=== PATIENT | male | born 1950 | race Caucasian/White ===

== ENCOUNTER 2017-08-23 19:20 | Emergency (ER) | payer MEDICARE, OTHER ==
[2017-08-23] MEDS: HYDROCODONE/APAP 7.5/325MG TABLET PO ONE (19:43)
--- NOTE | 2017-08-23 19:44 | Emergency Department Record ---
History of Present Illness - General Chief complaint: Pain Stated complaint: LT SHOULDER PAIN Time Seen by Provider: 08/23/17 19:37 Source: Patient Mode of Arrival: Ambulatory Limitations: No limitations - History of Present Illness Initial comments: 67 yo male presents to ED for evaluation of worsening left shoulder pain. Patient reports undergoing left shoulder surgery approximately 50 years ago for frequent dislocations, reports that his shoulder has done well over that time until the last several months. Patient reports increased pain with rolling onto the shoulder in bed, reports the sensation that the shoulder "slides out of place, but then reduces". Patient reports that today he coughed resulting in sever pain to the shoulder, felt again that it may have minimally dislocated. Patient denies fevers, chills, or recent illness. MD Complaint: Joint pain Onset/Timin -: Hour(s) Location: Left, Shoulder History of Same: No Radiation: None Severity scale (1-10): 8 Quality: Aching Consistency: Constant, Getting worse Improves with: Nothing Worsens with: Palpation - Related Data Home Medications Medication Instructions Recorded Confirmed Last Taken Aspirin 81 mg PO DAILY 08/23/17 08/23/17 Unknown Glyburide [Diabeta] 5 mg PO BID 08/23/17 08/23/17 Unknown Lisinopril 20 mg PO DAILY 08/23/17 08/23/17 Unknown Metformin HCl [Glucophage] 1,000 mg PO BID 08/23/17 08/23/17 Unknown Metoprolol Succinate [Toprol Xl] 25 mg PO DAILY 08/23/17 08/23/17 Unknown Previous Rx's Medication Instructions Recorded Hydrocodone/Acetaminophen [Sumner 1 each PO Q6H PRN #15 tablet 08/23/17 7.5-325 Tablet] Allergies Allergy/AdvReac Type Severity Reaction Status Date / Time Penicillins Allergy PT UNSURE Verified 08/23/17 19:28 OF REACTION Travel Screening - Travel/Exposure Within Last 30 Days Have you traveled within the last 30 days?: No Review of Systems Constitutional: Denies: Chills, Fever, Malaise, Night sweats Eyes: Denies: Eye discharge, Eye pain ENT: Denies: Congestion, Ear pain, Epistaxis Respiratory: Denies: Cough, Dyspnea Cardiovascular: Denies: Chest pain, Dyspnea on exertion Endocrine: Denies: Fatigue, Heat or cold intolerance Gastrointestinal: Denies: Abdominal pain, Nausea, Vomiting Genitourinary: Denies: Incontinence, Retention Musculoskeletal: Reports: Arthralgia. Denies: Back pain, Gout, Joint swelling Skin: Denies: Bruising, Change in color Neurological: Denies: Abnormal gait, Confusion, Headache, Seizure Psychiatric: Denies: Anxiety Hematological/Lymphatic: Denies: Anemia, Blood Clots Past Medical History - SOCIAL HISTORY Smoking Status: Never smoker Alcohol Use: None Drug Use: None - RESPIRATORY Hx Respiratory Disorders: No - CARDIOVASCULAR Hx Cardio Disorders: Yes Hx Hypertension: Yes - NEURO Hx Neuro Disorders: No - GI Hx GI Disorders: No - Hx Genitourinary Disorders: No - ENDOCRINE Hx Endocrine Disorders: Yes Hx Diabetes: Yes (DM2) - MUSCULOSKELETAL Hx Musculoskeletal Disorders: No - PSYCH Hx Psych Problems: No - HEMATOLOGY/ONCOLOGY Hx Hematology/Oncology Disorders: No Family Medical History Any Significant Family History?: Yes Hx Diabetes: Father, Mother Physical Exam - General General Appearance: Alert, Oriented x3, Cooperative, Moderate distress Limitations: No limitations - Head Head exam: Atraumatic, Normocephalic, Normal inspection Head exam detail: negative: Abrasion, Contusion, Beasley's sign, General tenderness, Hematoma, Laceration - Eye Eye exam: Normal appearance. negative: Conjunctival injection, Periorbital swelling, Periorbital tenderness, Scleral icterus - ENT Ear exam: negative: Auricular hematoma, Auricular trauma Nasal Exam: negative: Dried blood, Foreign body Mouth exam: negative: Drooling, Laceration, Muffled voice, Tongue elevation - Neck Neck exam: Normal inspection. negative: Meningismus, Tenderness - Respiratory Respiratory exam: Normal lung sounds bilaterally. negative: Rales, Respiratory distress, Rhonchi, Stridor - Cardiovascular Cardiovascular Exam: Regular rate, Normal rhythm, Normal heart sounds Peripheral Pulses: 3+: Radial (L) - GI/Abdominal GI/Abdominal exam: Soft. negative: Rebound, Rigid, Tenderness - Rectal Rectal exam: Deferred - exam: Deferred - Extremities Extremities exam: Tenderness, Other (TTP along the deltouid muscle, pain when the LUE is not supported. No erythema or evidence for septic joint on examination, no pain along the posterior rotator cuff, no evidence for AC separation on examination. No pain below the mid-humerus. Strong distal radial pulse is present.). negative: Calf tenderness, Pedal edema - Back Back exam: Denies: CVA tenderness (R), CVA tenderness (L) - Neurological Neurological exam: Alert, Normal gait, Oriented X3 - Psychiatric Psychiatric exam: Normal affect, Normal mood - Skin Skin exam: Normal color. negative: Abrasion Type of lesion: negative: abrasion Course Vital Signs 08/23/17 19:30 Temperature 98.4 F Pulse Rate [ 76 Pulse Ox Probe] Respiratory 18 Rate Blood Pressure 148/78 [Left Arm] Pulse Ox 98 - Reevaluation(s) Reevaluation #1: 08/23/17 20:43 Left Shoulder: Advanced DJD, tigre bodies present, post-surgical changes. Patient was updated on his radiology results, reports that he has not seen an orthopedist in many years. Will place in sling for support, prescribe analgesia , and arrange follow-up with Dr. Saleem in the [facility]. Patient agrees with the plan as discussed. Disposition Disposition: Discharge Clinical Impression: Left shoulder strain Qualifiers: Encounter type: initial encounter Qualified Code(s): S46.912A - Strain of unspecified muscle, fascia and tendon at shoulder and upper arm level, left arm , initial encounter Disposition: Home, Self-Care Condition: (2) Stable Instructions: Osteoarthritis (ED) Additional Instructions: Return to ED if your symptoms worsen or if you have any concerns. Sumner as directed. Sling as directed. Follow-up with Dr. Saleem in the [facility] as directed in 1-3 days as directed. Prescriptions: Hydrocodone/Acetaminophen [Sumner 7.5-325 Tablet] 1 each PO Q6H PRN #15 tablet PRN Reason: Pain - Moderate (5-7) Forms: Patient Portal Access Time of Disposition: 20:46 Quality - Quality Measures Quality Measures: N/A - Blood Pressure Screening Does Patient Have Any of the Following: Active Dx of HTN Blood Pressure Classification: Pre-Hypertensive BP Reading Systolic Measurement: 123 Diastolic Measurement: 65 Screening for High Blood Pressure: Patient Exclusion, Hx of HTN [G9744]
== END 2017-08-23 21:05 | disposition home or self-care (01) ==
LOC: ER 19:20 → EDBD 19:20 → ER 21:05
DX: S46.912A Strain of unspecified muscle, fascia and tendon at shoulder and upper arm level, left arm, initial encounter (principal); X50.0XXA Overexertion from strenuous movement or load, initial encounter; Y92.009 Unspecified place in unspecified non-institutional (private) residence as the place of occurrence of the external cause
CPT/HCPCS: 99283

== ENCOUNTER 2018-08-13 20:45 | Emergency (ER) | payer MEDICARE, OTHER ==
[2018-08-13] MEDS ORDERED: HYDROMORPHONE HCL 2 MG/ML VIAL IVP ONE ×2 (21:24→21:43)
[2018-08-13] MEDS ORDERED: ONDANSETRON HCL IV 4 MG/2 ML VIAL IVP ONE (21:24)
[2018-08-13 21:50] LABS: BASO % 0.4 % (0-6); EOS % 0.8 % (0-6); GRAN % 78.5 % (47-80); HEMATOCRIT 42.3 % (42.0-52.0); LYMPH % 13.6 % (16-45); MEAN CELL VOLUME 82.6 fl (81-97); MEAN CORPUSCULAR HEMOGLOBIN 29.3 pg (27-33); MEAN CORPUSCULAR HGB CONC 35.5 g/dl (32-36); MEAN PLATELET VOLUME 10.4 fl (7.4-10.4); MONO % 6.7 % (0-9); PLATELET COUNT 211 K/uL (130-400); RED BLOOD COUNT 5.12 M/uL (4.40-5.70); RED CELL DISTRIBUTION WIDTH 13.1 % (11.5-14.5); WHITE BLOOD COUNT W/O DIFF 7.6 K/uL (4.2-12.2)
[2018-08-13 21:58] LABS: BLOOD UREA NITROGEN 15 mg/dL (8-23); CREATININE 0.9 mg/dL (0.7-1.2); EST GLOMERULAR FILTRATION RATE > 60 mL/min; TOTAL PROTEIN 7.4 g/dL (6.6-8.7)
[2018-08-13 22:00] LABS: GLUCOSE,RANDOM 225 mg/dL (74-109)
[2018-08-13 22:03] LABS: ALBUMIN 4.4 g/dL (4.0-5.0); ALKALINE PHOSPHATASE 49 U/L (40-129); ALT/SGPT 19 U/L (<41); AST/SGOT 18 U/L (10.0-50.0); BILIRUBIN,DIRECT < 0.2 mg/dL (0-0.3); LIPASE 36 U/L (13-60)
--- NOTE | 2018-08-13 22:13 | Emergency Department Record ---
History of Present Illness - General Chief Complaint: Abdominal Pain Stated Complaint: ABDOMINAL PAIN Time Seen by Provider: 08/13/18 21:21 Source: Patient Mode of Arrival: Ambulatory Limitations: No limitations - History of Present Illness Initial Comments: pt came in w a sudden onset of abd pain 2.5hrs ago. he vomited once. the pain is severe and constant. he has never had this before. hes had no abd surgeries MD Complaint: Abdominal pain Onset/Timin -: Hour(s) Location: Periumbilical, LLQ, RLQ Severity scale (1-10): 9 Quality: Sharp Consistency: Constant, Getting worse Associated Symptoms: Vomiting - Related Data Allergies Allergy/AdvReac Type Severity Reaction Status Date / Time Penicillins Allergy PT UNSURE Verified 08/23/17 19:28 OF REACTION Travel Screening - Travel/Exposure Within Last 30 Days Have you traveled within the last 30 days?: No - Travel Symptoms Symptom Screening: None Review of Systems Reviewed: No additional complaints except as noted below Constitutional: Reports: As per HPI. Denies: Chills, Fever, Malaise, Night sweats, Weakness, Weight change Eyes: Reports: As per HPI. Denies: Eye discharge, Eye pain, Photophobia, Vision change ENT: Reports: As per HPI. Denies: Congestion, Dental pain, Ear pain, Epistaxis , Hearing loss, Throat pain Respiratory: Reports: As per HPI. Denies: Cough, Dyspnea, Hemoptysis, Stridor, Wheezes Cardiovascular: Reports: As per HPI. Denies: Arrhythmia, Chest pain, Dyspnea on exertion, Edema, Murmurs, Orthopnea, Palpitations, Paroxysmal nocturnal dyspnea, Rheumatic Fever, Syncope Endocrine: Reports: As per HPI. Denies: Fatigue, Heat or cold intolerance, Polydipsia, Polyuria Gastrointestinal: Reports: As per HPI. Denies: Abdominal pain, Constipation, Diarrhea, Hematemesis, Hematochezia, Melena, Nausea, Vomiting Genitourinary: Reports: As per HPI. Denies: Dysuria, Frequency, Hematuria, Incontinence, Retention, Testicular pain, Testicular mass, Urgency Musculoskeletal: Reports: As per HPI. Denies: Arthralgia, Back pain, Gout, Joint swelling, Myalgia, Neck pain Skin: Reports: As per HPI. Denies: Bruising, Change in color, Change in hair/ nails, Lesions, Pruritus, Rash Neurological: Reports: As per HPI. Denies: Abnormal gait, Confusion, Headache, Numbness, Paresthesias, Seizure, Tingling, Tremors, Vertigo, Weakness Psychiatric: Reports: As per HPI. Denies: Anxiety, Auditory hallucinations, Depression, Homicidal thoughts, Suicidal thoughts, Visual hallucinations Hematological/Lymphatic: Reports: As per HPI. Denies: Anemia, Blood Clots, Easy bleeding, Easy bruising, Swollen glands Past Medical History - SOCIAL HISTORY Smoking Status: Never smoker - RESPIRATORY Hx Respiratory Disorders: Yes Hx Sleep Apnea: Yes Hx of CPAP: No - CARDIOVASCULAR Hx Cardio Disorders: Yes Hx Hypertension: Yes - NEURO Hx Neuro Disorders: No - GI Hx GI Disorders: Yes Hx Reflux: Yes - Hx Genitourinary Disorders: No - ENDOCRINE Hx Endocrine Disorders: Yes Hx Diabetes: Yes (DM2) - MUSCULOSKELETAL Hx Musculoskeletal Disorders: Yes Hx Arthritis: Yes - PSYCH Hx Psych Problems: No - HEMATOLOGY/ONCOLOGY Hx Hematology/Oncology Disorders: No Family Medical History Any Significant Family History?: Yes Hx Diabetes: Father, Mother Physical Exam - General General Appearance: Alert, Oriented x3, Cooperative, Moderate distress - Head Head exam: Normal inspection - Eye Eye exam: Normal appearance, PERRL, EOMI Pupils: Normal accommodation - ENT ENT exam: Normal exam, Mucous membranes moist, Normal external ear exam, Normal orophraynx Ear exam: Normal external inspection. negative: External canal tenderness Nasal Exam: Normal inspection. negative: Discharge, Sinus tenderness Mouth exam: Normal external inspection, Tongue normal Teeth exam: Normal inspection. negative: Dental caries Throat exam: Normal inspection. negative: Tonsillar erythema, Tonsillar exudate - Neck Neck exam: Normal inspection, Full ROM. negative: Tenderness - Respiratory Respiratory exam: Normal lung sounds bilaterally. negative: Respiratory distress - Cardiovascular Cardiovascular Exam: Regular rate, Normal rhythm, Normal heart sounds - GI/Abdominal GI/Abdominal exam: Soft, Normal bowel sounds, Hernia (umbilical, incarcerated, tender), Hypoactive bowel sounds, Tenderness - Rectal Rectal exam: Deferred - exam: Deferred - Extremities Extremities exam: Normal inspection, Full ROM, Normal capillary refill. negative: Tenderness - Back Back exam: Reports: Normal inspection, Full ROM. Denies: Muscle spasm, Rash noted, Tenderness - Neurological Neurological exam: Alert, CN II-XII intact, Normal gait, Oriented X3 - Psychiatric Psychiatric exam: Normal affect, Normal mood - Skin Skin exam: Dry, Intact, Normal color, Warm Course Vital Signs 08/13/18 08/13/18 08/13/18 20:55 21:05 21:50 Temperature 97.6 F Pulse Rate 66 Pulse Rate [ 72 Pulse Ox Probe] Respiratory 20 18 Rate Blood Pressure 216/104 Blood Pressure 208/95 166/86 [Left Arm] Pulse Ox 100 96 - Reevaluation(s) Reevaluation #1: 08/13/18 22:12 after dilaudid was given, hernia was reduced w slow constant pressure. pt feels much better Medical Decision Making - Lab Data Result diagrams: 08/13/18 21:12 08/13/18 21:12 Lab Results 08/13/18 08/13/18 08/13/18 Range/Units 21:12 21:12 21:12 WBC 7.6 (4.2-12.2) K/uL RBC 5.12 (4.40-5.70) M/uL Hgb 15.0 (14.0-18.0) gm/dl Hct 42.3 (42.0-52.0) % MCV 82.6 (81-97) fl MCH 29.3 (27-33) pg MCHC 35.5 (32-36) g/dl RDW 13.1 (11.5-14.5) % Plt Count 211 (130-400) K/uL MPV 10.4 (7.4-10.4) fl Gran % 78.5 (47-80) % Lymphocytes % 13.6 L (16-45) % Monocytes % 6.7 (0-9) % Eosinophils % 0.8 (0-6) % Basophils % 0.4 (0-6) % Sodium 141 (136-145) mmol/L Potassium 3.6 (3.4-4.5) mmol/L Chloride 97 L (98-107) mmol/L Carbon Dioxide 25.0 (22-29) mmol/L Anion Gap 19.0 H (7-16) BUN 15 (8-23) mg/dL Creatinine 0.9 (0.7-1.2) mg/dL Estimated GFR > 60 mL/min Random Glucose 225 H (74-109) mg/dL Lactic Acid 2.2 (0.5-2.2) mmol/L Calcium 10.1 (8.8-10.2) mg/dL Total Bilirubin 0.70 (0.2-1.0) mg/dL Direct Bilirubin < 0.2 (0-0.3) mg/dL AST 18 (10.0-50.0) U/L ALT 19 (<41) U/L Alkaline Phosphatase 49 (40-129) U/L Total Protein 7.4 (6.6-8.7) g/dL Albumin 4.4 (4.0-5.0) g/dL Lipase 36 (13-60) U/L Disposition Disposition: Discharge Clinical Impression: Incarcerated hernia Disposition: Home, Self-Care Condition: (1) Good Instructions: Ventral Hernia (ED) Additional Instructions: follow up with dr dozier at 7:30am tomorrow. return sooner if worse. do not strain or lift anything. Referrals: Horacio Dozier [DOCTOR OF OSTEOPATH] - [facility] [Provider Group] Forms: Patient Portal Access Quality - Quality Measures Quality Measures: N/A - Blood Pressure Screening Does Patient Have Any of the Following: Active Dx of HTN Blood Pressure Classification: Hypertensive Reading Systolic Measurement: 216 Diastolic Measurement: 104 Screening for High Blood Pressure: Patient Exclusion, Hx of HTN [G9744]
== END 2018-08-13 22:54 | disposition home or self-care (01) ==
LOC: ER 20:45
DX: K42.0 Umbilical hernia with obstruction, without gangrene (principal); R11.11 Vomiting without nausea; I10 Essential (primary) hypertension
CPT/HCPCS: 99284 ×2; 96374; 96375; 83605; 83690; 85025; 80076; 80048; J2405; J1170